=== PATIENT | male | born 1985 | race Caucasian/White ===

== ENCOUNTER 2017-09-27 19:13 | Emergency (ER) | payer SELFPAY | END 2017-09-27 19:40 | disposition home or self-care (01) | PROVIDERS: Emergency Provider Nurse Practitioner; Visit Provider Nurse Practitioner | DX: J02.9 Acute pharyngitis, unspecified (principal); H60.92 Unspecified otitis externa, left ear | CPT/HCPCS: 87804; 87880; 99201 ==

== ENCOUNTER → 2017-10-18 11:46 | Outpatient (CLI) | payer SELFPAY ==
--- NOTE | 2017-10-18 11:55 | XR_ITS ---
XR foot LT min 3V HISTORY: ITS.REASON: LEFT FOOT PAIN ORDERING PHYSICIAN: Juliette Neumann PATIENT AGE: 32 years COMPARISON: None FINDINGS: No fracture or dislocation. No lytic or blastic change. There is normal mineralization.. The joint spaces are well-preserved. No significant degenerative/arthritic changes. No erosive changes evident. There is a small bone spur of the calcaneus measuring 7 mm nonspecific IMPRESSION: Small calcaneal spur otherwise negative
== END ==
PROVIDERS: PCP Nurse Practitioner; Visit Provider Nurse Practitioner
DX: M79.672 Pain in left foot (principal)
CPT/HCPCS: 73630

== ENCOUNTER → 2020-04-27 08:07 | Outpatient (CLI) | payer BC, SELFPAY ==
[2020-04-27 11:04] LABS: Coronavirus 19 IgG Antibody Negative (Negative); Coronavirus 19 IgM Antibody Negative (Negative)
== END ==
PROVIDERS: Visit Provider Surgery
DX: Z01.818 Encounter for other preprocedural examination (principal); Z03.818 Encounter for observation for suspected exposure to other biological agents ruled out; L72.3 Sebaceous cyst
CPT/HCPCS: 36415; 86328

== ENCOUNTER 2020-04-28 07:14 | Day surgery (SDC) | payer BC, SELFPAY ==
[2020-04-26 10:23] VITALS: BMI 34.9
[2020-04-28 07:31] VITALS: BP 140/81; PULSE 88; RESP 18; TEMP 36.5; O2SAT 96
--- NOTE | 2020-04-28 08:06 | P.PN_ITS ---
[facility] Anesthesia Checklist - Patient Identification Patient Identification: Arm Band, Verbal (Name & ) - Structural Data Admitted From: Home Planned Operative Procedure/s: Excision of sebaceous cyst from back Consent for Planned Operative Procedure(s) Verified: Yes Verified Documents: Surgical Consent, History and Physical - NPO Status Verified Time NPO: 23:00 - Chart Verification Results Verified: None - Additional verifications Anesthesia Reactions: No Hx Blood Transfusions: No Blood Transfusion Reaction: No - Airway Assessment C-Spine Mobility Assessed: Yes (MP 2, TMD 4) TMJ Mobility Assessed: Yes Dentition: Good Dentition - Neurological Assessment Level of Consciousness: Awake, Alert, Appropriate, Follows Commands Hx Seizures: No Numbness or tingling in extremities: No - Anesthesia Plan Anesthesia Risk discussed: Yes Anesthesia Plan: Verified ASA Class: II Anesthesia Type: MAC [facility] History I have reviewed the patient's past medical history: Yes Medical History: Denies:: Cancer, Diabetes Mellitus Type 1, Diabetes Mellitus Type 2, Gastroesophageal Reflux Disease(GERD), Hyperlipidemia, Hypertension, Internal Pacemaker, MRSA, Seizures *Have you ever received a pneumonia vaccine?: No *Have you received a flu vaccine this season?: Yes Other Medical History: Reports: Arthritis, Sinus Problems. Denies: Blood Transfusion Reaction, Hypothyroidism, Thyroid Disease Comment:: obesity Anesthesia experience/problems:: no prior complications Laterality Cases: Bilateral: Tonsillectomy Other Surgeries: No: Pacemaker Amputation: No Fractures: No - *Social History Last grade of school completed: High school graduate Smoking Status: Never smoker # Packs/Day (cigarettes): 0 #Yrs smoked (if former smoker): 0 Alcohol Intake: never Alcohol Intake Frequency:: holidays/special occasions only Substance Use Type: denies use *Occupational Status:: employed Housing: house Household Members: spouse, family, children *Travel in the last 8 weeks: None Family Hx:: Cancer, Heart Attack
[2020-04-28 09:13] VITALS: BP 130/66; PULSE 75; RESP 18; TEMP 36.1; O2SAT 95
--- NOTE | 2020-04-28 09:17 | HMH.OPNOTE ---
Date of procedure: 04/28/20 Pre-op Diagnosis:: Sebaceous cyst on the back Post-op Diagnosis:: Same Procedure performed:: Excision of sebaceous cyst from the back (excisional length 3 cm) with intermediate complexity closure Surgeon:: Jeffry Pham MD Anesthesia: MAC Estimated blood loss (mL): 10 Clinical Note:: Patient is a pleasant 34-year-old male referred by Dr. Shook for sebaceous cyst on the back. Patient states that this area has been present for approximately 15 years. He wonders if it began as a consequence of wearing shoulder pads and playing football. He apparently developed an abscess and underwent limited incision and drainage. However, he had recurrence of the cyst several years ago. Operative findings:: Consistent with noninfected epidermal inclusion cyst Operative note:: Patient was taken to the operating room. He was positioned in the lateral position. Adequate intravenous sedation was achieved. Area was prepped and draped in the standard surgical fashion. Skin was marked with a skin marker for planned elliptical incision in an attempt to excise central skin punctum. Local anesthetic was infiltrated superficially and regionally around the lesion. Skin incision was performed. With careful dissection using sharp scissor dissection and scalpel dissection dissection was carried down to the cyst capsule. Cyst capsule was then dissected free from surrounding subcutaneous tissues with the attached overlying skin ellipse and capsule remained intact. It was sent off as a specimen. Wound was irrigated. Hemostasis was achieved with electrocautery. Dermal tissues were reapproximated with several interrupted 2-0 Vicryl sutures. Skin was closed with interrupted 3-0 nylon. Clean dry sterile dressing was applied. Condition: stable Disposition: PACU Complications:: None immediately apparent
[2020-04-28 09:23] VITALS: BP 127/72; PULSE 83; RESP 18; O2SAT 96
[2020-04-28 09:33] VITALS: BP 133/72; PULSE 72; RESP 18; O2SAT 95
[2020-04-28 09:45] VITALS: BP 124/70; PULSE 78; RESP 18; O2SAT 96
== END 2020-04-28 09:45 | disposition home or self-care (01) ==
LOC: OR 07:15
PROVIDERS: PCP Family Medicine; Visit Provider Surgery
PROC: (CPT 11403; principal; 2020-04-28 08:45)
DX: L72.3 Sebaceous cyst (principal); M19.90 Unspecified osteoarthritis, unspecified site; E66.9 Obesity, unspecified; Z90.89 Acquired absence of other organs; Z80.9 Family history of malignant neoplasm, unspecified; Z82.3 Family history of stroke
CPT/HCPCS: 11403; 12031; 96374

== ENCOUNTER 2020-09-30 09:39 | Emergency (ER) | payer BC, SELFPAY ==
[2020-09-30 09:45] VITALS: BP 126/78; PULSE 87; RESP 18; TEMP 36.9; O2SAT 98; BMI 34.1
--- NOTE | 2020-09-30 09:59 | HMH.EDUTC ---
[facility] [place] Clinical Impression: Encounter for laboratory testing for COVID-19 virus Disposition: Home, Self-Care Condition on Discharge: Good Instructions: DI for COVID-19 (Suspected or Confirmed ), COVID-19 Viral Test, COVID-19: Testing and Tracing, Preventing the Spread of Coronavirus Discharge Instructions Additional Instructions: *Monitor Temp, Over the counter Motrin or Tylenol as directed/as needed Tylenol every 4 hours and Motrin every 6 hours (as long as your family doctor has told you that you can take it) for fever or pain. and straight to ER if unable to lower temp less than 101.0 after medication given Follow up IMMEDIATELY for new or worsening symptoms or no Noticeable improvement over the next 48-72 hours. 911 for difficulty breathing or swallowing You were tested for today for COVID19 your test result should be back in the next 24-48 hours, you may call to the [facility] to see if your test results are back in the next 48 hours [phone] [facility] hours are 9am-9pm You was given a handout with instructions for Self Quarantine and Self isolation for while you wait on test results and what to do if they are positive If you are positive the Health Dept will be contacting you also Referrals: Ángel Agarwal MD [Primary Care Provider] - As needed Forms: Work/School Release Time of Disposition: 10:03 Medical Decision Making - Arnaud Inquiry Pt receiving controlled substance: No Arnaud was queried for this patient: No Vital Signs: 09/30/20 09:45 Temperature 98.4 F Temperature Source Oral Pulse Rate [Left Brachial] 87 Respiratory Rate 18 Blood Pressure [Left Arm] 126/78 Blood Pressure Mean [Left Arm] 94 Blood Pressure Source [Left Arm] Automatic Cuff Blood Pressure Position [Left Arm] Sitting 02 Sat by Pulse Oximetry 98 Orders (Tests/Meds): ORDERS Category Date Time Status Covid-19 Nasal PCR ([facility]) Routine Lab 09/30/20 09:42 Ordered [facility] [place] HPI - General Stated complaint: covid exposure Time Seen by Provider: 09/30/20 09:59 Mode of Arrival: Ambulatory Source of Information: Patient Limitations: No Limitations Description of Symptoms (Recalled from Triage Doc. by RN): PATIENT REQUESTING COVID TEST D/T EXPOSURE; DENIES SYMPTOMS HEENT Symptoms (Recalled from RN notes): No Resp Symptoms (Recalled from RN notes): No Skin Symptoms (Recalled from RN notes): No MS Symptoms (Recalled from RN notes): No Functional Status (Recalled from RN notes): WNL - History of Present Illness Provider Complaint: Patient state that he has been in quarantine for the last 14 days due to his tested positive for COVID State that his job wanted him to get tested for COVID to see if he is negative before he can return to work States that he is not having any symptoms - Related Data Home Medications Medication Instructions Recorded Confirmed naproxen sodium 220 mg capsule 220 mg PO BID PRN 05/07/20 05/07/20 Allergies Allergy/AdvReac Type Severity Reaction Status Date / Time No Known Allergies Allergy Verified 04/28/20 07:30 - Worker's Comp Is this a Worker's Comp case?: No [facility] History - Hepatitis A Screen Drug use history?: No High risk sexual behaviors?: No History of sexually transmitted infection?: No Currently employed?: No Childcare worker?: No Do you have indoor plumbing?: Yes Do you have electricity?: Yes Attestation statement:: This patient has been screened for Hepatitis A risk factors. I have reviewed the patient's past medical history: Yes Medical History: Denies:: Cancer, Diabetes Mellitus Type 1, Diabetes Mellitus Type 2, Gastroesophageal Reflux Disease(GERD), Hyperlipidemia, Hypertension, Internal Pacemaker, MRSA, Seizures Other Medical History: Reports: Arthritis, Sinus Problems. Denies: Blood Transfusion Reaction, Hypothyroidism, Thyroid Disease Comment: obesity Laterality Cases: Bilateral: Tonsillectomy Other Surgeries: Yes: Other (Cyst remival - upper back). No: P
[2020-09-30 10:08] VITALS: BP 126/78; PULSE 87; RESP 18; TEMP 36.9; O2SAT 98
== END 2020-09-30 10:10 | disposition home or self-care (01) ==
PROVIDERS: Emergency Provider Nurse Practitioner; PCP Family Medicine
DX: Z20.828 Contact with and (suspected) exposure to other viral communicable diseases (principal)
CPT/HCPCS: 99201; U0003

== ENCOUNTER → 2020-10-01 14:38 | Outpatient (CLI) | payer BC, SELFPAY ==
[2020-10-01 15:52] LABS: Coronavirus 19 IgG Antibody Positive (Negative); Coronavirus 19 IgM Antibody Negative (Negative)
== END ==
PROVIDERS: Visit Provider Family Medicine
DX: Z20.828 Contact with and (suspected) exposure to other viral communicable diseases (principal); Z86.19 Personal history of other infectious and parasitic diseases
CPT/HCPCS: 86328

== ENCOUNTER 2021-11-10 12:42 | Emergency (ER) | payer OTHER, SELFPAY ==
[2021-11-10 14:40] VITALS: BP 104/72; PULSE 78; RESP 18; TEMP 36.7; O2SAT 99; BMI 14.0
--- NOTE | 2021-11-10 15:04 | HMH.EDUTC ---
[facility] [place] Disposition Clinical Impression: Sore throat Otitis media Qualifiers: Otitis media type: unspecified Laterality: right Qualified Code(s): H66.91 - Otitis media, unspecified, right ear Disposition: Home, Self-Care Condition on Discharge: Good Instructions: Sore Throat Additional Instructions: Start oral steriods tomorrow *Monitor Temp, Over the counter Motrin or Tylenol as directed/as needed Tylenol every 4 hours and Motrin every 6 hours (as long as your family doctor has told you that you can take it) for fever or pain. and straight to ER if unable to lower temp less than 101.0 after medication given *Warm salt water gargles may help to soothe the throat *Throat Lozenges *Warm fluids like tea with honey may help to soothe the throat *Sleep elevated *Humidifier/Vaporizer Your throat swab was sent for culture. Those results are typically sent to your primary care. Be sure to follow up in 2-3 days with your family doctor/primary care physician if no improvement so they can review those result and treat if necessary. If you don?t have a primary care doctor, I recommend you get one but in the mean time, you will have to return to a walk in clinic Follow up IMMEDIATELY for new or worsening symptoms or no Noticeable improvement over the next 48-72 hours. 911 for difficulty breathing or swallowing Prescriptions: Amoxicillin [Amoxicillin 875MG Tab] 875 mg PO Q12H #14 tab Transmission Status: Pending to [id number] methylPREDNISolone [Medrol 4mg tab] 4 mg PO DIRECTED #21 tab Transmission Status: Pending to [id number] Referrals: Ángel Agarwal MD [Primary Care Provider] - As needed Time of Disposition: 15:30 Medical Decision Making - Arnaud Inquiry Pt receiving controlled substance: No Arnaud was queried for this patient: No Vital Signs: 11/10/21 14:40 Temperature 98.0 F Temperature Source Oral Pulse Rate [Right Brachial] 78 Respiratory Rate 18 Blood Pressure [Right Arm] 104/72 L Blood Pressure Mean [Right Arm] 82 Blood Pressure Source [Right Arm] Automatic Cuff Blood Pressure Position [Right Arm] Sitting 02 Sat by Pulse Oximetry 99 Oxygen Delivery Method Room Air - Lab Data Lab results reviewed: Yes: I reviewed the patient's lab results. Lab Results 11/10/21 14:42: Group A Strep Rapid Negative Orders (Tests/Meds): ED MEDICATIONS Discontinued Medications Generic Name Dose Route Start Last Admin Trade Name Chris PRN Reason Stop Dose Admin Methylprednisolone Sodium Succinate 125 mg 11/10/21 15:05 11/10/21 15:12 Methylprednisolone Sod Succ 125mg Vial IM 11/10/21 15:06 125 mg ONCE ONE Administration ORDERS Category Date Time Status Strep Screen Confirmation Stat Micro 11/10/21 14:42 Received [facility] [place] HPI - General Stated complaint: sore throat Time Seen by Provider: 11/10/21 15:04 Mode of Arrival: Ambulatory Source of Information: Patient Limitations: No Limitations Description of Symptoms (Recalled from Triage Doc. by RN): PATIENT C/O SORE THROAT X 2 DAYS HEENT Symptoms (Recalled from RN notes): Yes Resp Symptoms (Recalled from RN notes): No Skin Symptoms (Recalled from RN notes): No MS Symptoms (Recalled from RN notes): No Functional Status (Recalled from RN notes): WNL - History of Present Illness Provider Complaint: Patient state that he has been having sore throat and bilateral ear pain and pressure for several days states that today daughter was ill and he had to bring her in so he came in too to get checked out - Related Data Previous Rx's Medication Instructions Recorded Amoxicillin [Amoxicillin 875MG 875 mg PO Q12H #14 tab 11/10/21 Tab] methylPREDNISolone [Medrol 4mg 4 mg PO DIRECTED #21 tab 11/10/21 tab] Allergies Allergy/AdvReac Type Severity Reaction Status Date / Time No Known Allergies Allergy Verified 10/24/21 09:08 - Worker's Comp Is this a Worker's Comp case?: No [facility] History
[2021-11-10 15:19] LABS: Strep Scrn Group A (Rapid) Negative (Negative)
[2021-11-10 15:37] VITALS: BP 104/72; PULSE 78; RESP 18; TEMP 36.7; O2SAT 99
== END 2021-11-10 15:41 | disposition home or self-care (01) ==
PROVIDERS: Emergency Provider Nurse Practitioner; PCP Family Medicine
DX: J02.9 Acute pharyngitis, unspecified (principal); H66.91 Otitis media, unspecified, right ear
CPT/HCPCS: 87430; 99202; G0463

== ENCOUNTER 2022-05-20 19:58 | Emergency (ER) | payer OTHER, SELFPAY ==
[2022-05-20 20:09] VITALS: BMI 34.9
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
[2022-05-20 20:22] LABS: Alanine Aminotransferase 48 U/L (12-78); Albumin Level 4.6 g/dl (3.5-5.0); Albumin/Globulin Ratio 1.6 (1.1-1.8); Alkaline Phosphatase 72 U/L (38-126); Aspartate Amino Transferase 43 U/L (17-59); Bilirubin,Total 0.3 mg/dl (0.2-1.3); Blood Urea Nitrogen 17 mg/dl (9-20); Calcium 9.5 mg/dl (8.4-10.2); Carbon Dioxide 28 mmol/L (22.0-30.0); Chloride 104 mmol/L (98-107); Creatinine Clearance Estimated 186 mL/min (50-200); Estimated Glomerular Filt Rate 76 ml/min (>60); GFR (African American) 92 ML/MIN (>60); Globulin 2.8 g/dL (1.3-3.2); Glucose 131 mg/dl (74-100); Lipase 52 U/L (23-300); Sodium 138 mmol/L (136-145); Total Protein,Serum 7.4 g/dl (6.3-8.2)
[2022-05-20 20:24] LABS: Basophils # 0.1 K/mm3 (0-0.2); Basophils % 1.3 % (0.1-2.0); Eosinophils # 0.1 K/mm3 (0.0-0.4); Hemoglobin 15.8 g/dL (14.1-18.0); Lymphocytes # 2.5 K/mm3 (0.7-4.5); Lymphocytes % 28.7 % (10-50); Mean Corpuscular HGB Conc 32.9 g/dL (31.8-35.4); Mean Corpuscular Hemoglobin 29.3 pg (27.0-31.2); Mean Platelet Volume 10.1 fl (7.4-10.4); Monocytes # 0.5 K/mm3 (0.1-1.0); Monocytes % 5.8 % (1.7-9.3); Neutrophils # 5.6 K/mm3 (1.8-7.8); Neutrophils % 63.1 % (37.0-80.0); Platelet Count 163 K/mm3 (142-424); Red Blood Count 5.39 M/mm3 (4.60-6.20); Red Cell Distribution Width 13.7 % (11.5-17.5); White Blood Count 8.8 K/mm3 (4.8-10.8)
[2022-05-20 20:32] VITALS: BP 152/90; PULSE 92; RESP 17; TEMP 36.9; O2SAT 97
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
[2022-05-20 21:46] VITALS: BP 136/88; PULSE 75; RESP 18; TEMP 36.8; O2SAT 97
== END 2022-05-20 22:20 | disposition home or self-care (01) ==
PROVIDERS: Emergency Provider Student in an Organized Health Care Education/Training Program; PCP Nurse Practitioner Family
DX: S80.212A Abrasion, left knee, initial encounter (principal); V48.5XXA Car driver injured in noncollision transport accident in traffic accident, initial encounter; M19.90 Unspecified osteoarthritis, unspecified site; E66.9 Obesity, unspecified; Z79.52 Long term (current) use of systemic steroids; Z79.899 Other long term (current) drug therapy; Z68.34 Body mass index [BMI] 34.0-34.9, adult; Z82.49 Family history of ischemic heart disease and other diseases of the circulatory system; Z80.9 Family history of malignant neoplasm, unspecified
CPT/HCPCS: 71046; 72170; 73030; 73562; 80053; 83690; 85025; 99283

== ENCOUNTER 2024-07-23 11:04 | Emergency (ER) | payer BC, SELFPAY ==
[2024-07-23 11:16] VITALS: BP 137/86; PULSE 85; RESP 20; TEMP 36.7; O2SAT 98; BMI 35.4
--- NOTE | 2024-07-23 11:23 | EXP.UTC ---
Discharge Plan Disposition Patient Disposition: Home, Self-Care Condition: Good Prescriptions Prescriptions: New benzonatate 100 mg capsule 100 mg PO TIDP PRN (Reason: Cough) Qty: 30 0RF methylprednisolone 4 mg Tablets,Dose Pack 4 mg PO DIRECTED 6 Days Qty: 21 0RF Rx Instructions: Take 1 pack as directed for 6 days amoxicillin-pot clavulanate 875-125 mg Tablet 1 tab PO Q12H Qty: 20 0RF Referrals Follow up/Referrals: Marnie Li APRN [Primary Care Provider] - See instructions Activity Restrictions/Add. Instructions Additional Instructions/Restrictions: Drink plenty of fluids. Take tylenol or ibuprofen for pain or fever. Take the medications as directed. Follow up with your regular doctor. GO TO THE ER FOR ANY WORSENING SYMPTOMS Clinical Impressions Clinical Impression: Otitis media Qualifiers: Otitis media type: unspecified Laterality: right Qualified Code(s): H66.91 - Otitis media, unspecified, right ear Instructions Patient Instructions: Middle Ear Infection, Methylprednisolone, Amoxicillin and Clavulanic Acid Print Language Print Language: [place] Discharge ED Provider: Suhas Madrid [facility] General Stated complaint: Pain in L ear Mode of Arrival: Ambulatory Source of Information: Patient Time Seen by Provider: 07/23/24 11:23 Description of Symptoms (Recalled from Triage Doc. by RN): LEFT EAR PAIN HEENT Symptoms (Recalled from RN notes): Yes Resp Symptoms (Recalled from RN notes): No Skin Symptoms (Recalled from RN notes): No MS Symptoms (Recalled from RN notes): No Functional Status (Recalled from RN notes): WNL Related Data Previous Rx's ?Medication ?Instructions ?Recorded amoxicillin 875 mg-potassium 1 tab PO Q12H #20 tabs 07/23/24 clavulanate 125 mg tablet benzonatate 100 mg capsule 100 mg PO TIDP PRN Cough #30 caps 07/23/24 methylprednisolone 4 mg tablets in 4 mg PO DIRECTED 6 days #21 tabs 07/23/24 a dose pack Allergies Allergy/AdvReac Type Severity Reaction Status Date / Time No Known Allergies Allergy Verified 10/24/21 09:08 Worker's Comp Is this a Worker's Comp case?: No [facility] Disclaimer: The information contained in this section may have been updated after the patient was seen, as this information can be updated by other users. Social History Smoking Status: Never smoker alcohol intake: never substance use type: denies use current occupational status: other Travel in the last 8 weeks: None household members: family housing: house current occupation: [employer] caffeine: Yes ROS Obtained: Yes All systems reviewed & no additional complaints except as documented Constitutional Constitutional: Denies chills, Reports fever(s) and Reports poor appetite Eyes Eyes: Denies eye discharge ENT Ears, Nose, Mouth, and Throat: Denies ear discharge, Reports otalgia, Denies hearing loss, Denies sinus pain and Reports sore throat Cardiovascular Cardiovascular: Denies chest pain and Denies dyspnea Respiratory Respiratory: Denies chest congestion, Reports cough and Denies dyspnea Gastrointestinal Gastrointestingal: Denies abdominal pain, diarrhea, nausea or vomiting Musculoskeletal Musculoskeletal: Denies arthralgias Integumentary/Breasts Skin/Breast: Denies rash Physical Exam General General appearance: alert and in no apparent distress Head Head exam: atraumatic, normocephalic and normal inspection Eye Eye exam: Present normal appearance; Absent PERRL or EOMI ENT ENT exam: Present mucous membranes moist and normal external ear exam Expanded ENT Exam TM/Canal exam: Bilateral TM: erythema, bulging and effusion Nose exam: Absent sinus tenderness Nasal speculum exam: Bilateral: normal Mouth exam: Present normal external inspection and other; Absent drooling Teeth exam: Present normal inspection Throat exam: Present tonsillar erythema and tonsillomegaly Neck Neck exam: Present normal inspection, full ROM and trachea midline; Absent tenderness, meningismus or lymphadenopathy Chest Chest inspection: Present normal inspection and symmetric chest wall rise; Absent tenderness Respiratory Respiratory exam: Present normal lung sounds bilaterally; Absent respiratory distress, wheezes or stridor Cardiovascular Cardiovascular exam: Present regular rate, normal rhythm and normal heart sounds; Absent tachycardia or irregular rhythm Abdominal Exam Abdominal exam: Present soft and normal bowel sounds; Absent distention, tenderness, guarding, rebound or rigidity Extremities Exam Extremities exam: Present normal inspection and normal capillary refill; Absent tenderness, joint swelling or calf tenderness Back Exam Back exam: Present normal inspection and full ROM; Absent tenderness, CVA tenderness (R) or CVA tenderness (L) Neurological Exam Neurological exam: Present alert, oriented X3, CN II-XII intact, normal gait and reflexes normal; Absent motor sensory deficit Psychiatric Psychiatric exam: Present normal affect and normal mood Skin Skin exam: Present warm, dry, intact and normal color Lymphatic Lymphatic Findings: no adenopathy Medical Decision Making Medical Records Medical records reviewed: No I reviewed the patient's medical records. Screening: Per USPSTF and CDC recommendations, given the prevalence of disease in our region, it is our hospital?s policy to screen for HIV and viral Hepatitis for all patients aged 18 and over and those with ongoing risk factors. Arnaud Inquiry Pt receiving controlled substance: No Vital Signs: 07/23/24 11:16 Temperature 98.1 F Temperature Source Oral Pulse Rate [Left Radial] 85 Respiratory Rate 20 Blood Pressure [Left Arm] 137/86 Blood Pressure Mean [Left Arm] 103 02 Sat by Pulse Oximetry 98
[2024-07-23 11:32] VITALS: BP 137/86; PULSE 85; RESP 20; TEMP 36.7
== END 2024-07-23 11:34 | disposition home or self-care (01) ==
PROVIDERS: Emergency Provider Nurse Practitioner Family; PCP Nurse Practitioner Family
DX: H66.91 Otitis media, unspecified, right ear (principal)
CPT/HCPCS: 99213; G0381

== ENCOUNTER → 2025-07-09 20:13 | Outpatient (CLI) | payer BC, SELFPAY | LOC: SL 20:14 | PROVIDERS: PCP Nurse Practitioner Family; Visit Provider Nurse Practitioner Family | DX: G47.26 Circadian rhythm sleep disorder, shift work type (principal) | CPT/HCPCS: 95810 ==